=== PATIENT | male | born 1945 | race Caucasian/White ===

== ENCOUNTER 2018-10-26 06:49 | Day surgery (SDC) | payer OTHER, MEDICARE ==
--- OUTSIDE RECORDS SUMMARY | 2018-10-26 06:51 | XMS REPORT | Continuity of Care Document ---
:1945 Author Organization Interface Problems Problem Status Onset Classification Date Comments Source Date Reported History of Active Problem 08/03/2017 Medical colon polyps Group High Active Problem 08/03/2017 Medical cholesterol Group HTN (<span Active Problem 08/03/2017 Medical ID="[id number] Group 1">Confirmed</s govea>) Medications Medication Details Route Status Patient Ordering Order Source Instructions Provider Date Fish Oil PO, 0 Active Refill(s) 017 Medical Group memantine 5 mg oral mucinex, Active MH tablet PO, BID, 0 017 Medical Refill(s) Group Sulfamethoxazole 0 Active Refill(s) 017 Medical Group multivitamin Daily, 0 Active Refill(s) 017 Medical Group Aspirin 0 Active Refill(s) 017 Medical Group atorvastatin 10 mg 10 mg=1 Active MH oral tablet tab, PO, 017 Medical Bedtime, # Group 30 tab, 0 Refill(s) lisinopril 10 mg 10 mg=1 Active MH oral tablet tab, PO, 017 Medical Daily, # Group 30 tab, 0 Refill(s) Mucinex 600 mg, Active MH PO, Q12H, 017 Medical 0 Group Refill(s) Metronidazole 500 500 mg=1 Active MH MG Oral Tablet tab, PO, 017 Medical BID, # 14 Group tab, 0 Refill(s) CoQ10 300 mg, Active MH PO, Daily, 017 Medical 0 Group Refill(s) Allergies, Adverse Reactions, Alerts Substance Category Reaction Severity Reaction Status Date Comments Source type Reported penicillin Assertion Drug Active allergy Medical Group Immunizations Immunization Date Given Site Status Last Updated Comments Source Results Order Results Value Reference Date Interpretation Comments Source Name Range Vital Signs Vital Sign Value Date Comments Source Weight 76.477 07/31/2017 Medical Group BMI Calculated 25.64 07/31/2017 Medical Group Systolic (mm Hg) 124 07/31/2017 Medical [facility] Diastolic (mm Hg) 72 07/31/2017 Medical [facility] Height 172.72 cm 07/31/2017 Medical [facility] Encounters Location Location Encounter Encounter Reason Attending ADM DC Status Source Details Type Number For Provider Date Date Visit Outpatient [id number] CYDNEY 07/31 [facility][Note 3] SCHAFER /2017 [facility] Outpatient [id number] Cydney 07/31 08/01 [facility] [place] Procedures Procedure Code Date Perfomer Comments Source Colonoscopy [id number] 08/11/2013 Medical Group Tonsillectomy [id number] Medical Group
--- OUTSIDE RECORDS SUMMARY | 2018-10-26 06:51 | XMS REPORT | Clinical Summary ---
:[address] [facility] Address [address] [place] [address] Care Team Providers Name Role Phone Manny Chaparro MD Primary Care Provider Allergies Active Allergy Reactions Severity Noted Date Comments Penicillins Rash Medium 08/04/2017 Medications Medication Sig Dispensed Refills Start Date End Date Status atorvastatin (LIPITOR) Take 10 mg by 0 Active 10 MG mouth nightly . tabletIndications: mixed hyperlipidemia lisinopril Take 10 mg by 0 Active (PRINIVIL,ZESTRIL) 10 mouth daily. MG tabletIndications: hypertension tamsulosin (FLOMAX) 0.4 Take 1 capsule 30 capsule 0 08/09/2017 Active mg Cp24 24 hr capsule (0.4 mg total) by mouth daily. memantine (NAMENDA) 5 Take 5 mg by 0 Active MG tablet mouth 2 (two) times daily. finasteride (PROSCAR) 5 Take 5 mg by 0 Active mg tablet mouth nightly . ciprofloxacin HCl Take 500 mg by 0 Active (CIPRO) 500 MG tablet mouth 2 (two) times daily. Active Problems Problem Noted Date BPH (benign prostatic hyperplasia) 09/15/2017 Hydronephrosis with infection 08/05/2017 Encounters Date Type Specialty Care Team Description 09/03/2018 Office Visit Urology Adama Argueta Prostate cancer (HCC) ( Primary Dx); MD Hernando Lower urinary tract symptoms (LUTS) 08/31/2018 Orders Only Urology Nabila Farrar 08/27/2018 Telephone Urology Nabila Farrar Pt not sure what procedure they need to com in and have. 05/18/2018 Telephone Urology Adama Argueta Advice Only MD Hernando after 10/25/2017 Family History Medical History Relation Name Comments Heart disease Father Stroke Mother Relation Name Status Comments Father Mother Social History Tobacco Use Types Packs/Day Years Used Date Never Smoker Smokeless Tobacco: Never Used Alcohol Use Drinks/Week oz/Week Comments Yes social drinker Sex Assigned at Date Recorded Not on file Job Start Date Occupation Industry Not on file Not on file Not on file Travel History Travel Start Travel End No recent travel history available. Last Filed Vital Signs Vital Sign Reading Time Taken Blood Pressure 121/68 09/03/2018 2:34 PM [employer] Pulse 95 09/03/2018 2:34 PM [employer] Temperature 36.7 C (98 F) 09/03/2018 2:34 PM [employer] Respiratory Rate - - Oxygen Saturation - - Inhaled Oxygen Concentration - - Weight 68.9 kg (151 lb 12.8 oz) 09/03/2018 2:34 PM [employer] Height 172.7 cm (5' 8") 09/03/2018 2:34 PM [employer] Body Mass Index 23.08 09/03/2018 2:34 PM [employer] Plan of Treatment Not on file Procedures Procedure Name Priority Date/Time Associated Diagnosis Comments PSA Routine 09/03/2018 4:04 PM Lower urinary tract Results for this [employer] symptoms (LUTS) procedure are in the results section. after 10/25/2017 Results PSA (09/03/2018 4:04 PM [employer]) Prostate Specific Ag, Serum 0.3 0.0 - 4.0 ng/mL [facility] 1 Comment: Candy ECLIA methodology. According to the [place] [employer], Serum PSA should decrease and remain at undetectable levels after radical prostatectomy. The AUA defines biochemical recurrence as an initial PSA value 0.2 ng/mL or greater followed by a subsequent confirmatory PSA value 0.2 ng/mL or greater. Values obtained with different assay methods or kits cannot be used interchangeably. Results cannot be interpreted as absolute evidence of the presence or absence of malignant disease. Specimen Blood Narrative Performed At Performed at: - [facility] [address], [id number] Rotoprinter: Gilbert Multani MD, Phone:[phone] Performing Organization Address City/State/Zipcode Phone Number [facility] 1 after 10/25/2017 Insurance Payer Benefit Plan / Group Subscriber ID Type Phone Address MEDICARE MEDICARE A B xxxxxxxxxxx Medicare MCR SUPPLEMENT/INDIVIDUAL AARP/[facility] xxxxxxxxxxx [facility] Advance Directives For more information, please contact:[address] [phone] Code Status Date Activated Date Inactivated Comments Full Code 09/15/2017 3:31 PM 09/16/2017 3:43 PM This code status was determined by: Patient Full Code 08/05/2017 12:16 AM 08/09/2017 4:39 PM This code status was determined by: Patient
--- OUTSIDE RECORDS SUMMARY | 2018-10-26 06:52 | XMS REPORT | Summary of Care ---
:1945 Author Organization [facility] [place] Address [address] [place] [address]- Encounter HQ Darnell(FIN) [id number] Date(s): 07/31/17 - 07/31/17 [facility] Gastroenterology [address] [place] [address]- [phone] Discharge Disposition: Home or Self Care Attending Physician: Stanley Soto MD Vital Signs Most recent to oldest [Reference Range]: 1 Height 172.72 cm (07/31/17 2:15 PM) Blood Pressure [90-140/60-90 mmHg] 124/72 mmHg (07/31/17 2:15 PM) Weight 76.477 kg (07/31/17 2:15 PM) Body Mass Index 25.64 m2 (07/31/17 2:15 PM) Problem List Condition Effective Dates Status Health Status Informant History of colon polyps(Confirmed) Active High cholesterol(Confirmed) Active HTN (hypertension)(Confirmed) Active Allergies, Adverse Reactions, Alerts Substance Reaction Severity Status penicillin Active Medications aspirin 0 Refill(s) Start Date: 07/31/17 Status: Orderedatorvastatin 10 mg oral tablet 10 mg=1 tab, PO, Bedtime, # 30 tab, 0 Refill(s) Start Date: 07/31/17 Status: YvdyzuwMwT21 300 mg, PO, Daily, 0 Refill(s) Start Date: 07/31/17 Status: OrderedFish Oil PO, 0 Refill(s) Start Date: 07/31/17 Status: Orderedlisinopril 10 mg oral tablet 10 mg=1 tab, PO, Daily, # 30 tab, 0 Refill(s) Start Date: 07/31/17 Status: Orderedmemantine 5 mg oral tablet mucinex, PO, BID, 0 Refill(s) Start Date: 07/31/17 Status: OrderedmetroNIDAZOLE 500 mg oral tablet 500 mg=1 tab, PO, BID, # 14 tab, 0 Refill(s) Start Date: 07/31/17 Stop Date: 08/07/17 Status: OrderedMucinex 600 mg, PO, Q12H, 0 Refill(s) Start Date: 07/31/17 Status: Orderedmultivitamin Daily, 0 Refill(s) Start Date: 07/31/17 Status: Orderedsulfamethoxazole 0 Refill(s) Start Date: 07/31/17 Status: Ordered Results No data available for this section Immunizations No data available for this section Procedures Procedure Date Related Diagnosis Body Site Colonoscopy 2014 Tonsillectomy Social History Social History Type Response Substance Abuse Use: None. Alcohol Never Smoking Status Never smoker; Exposure to Tobacco Smoke None; Cigarette Smoking Last 365 Days No; Reg Smoking Cessation Counseling No Assessment and Plan No data available for this section
--- OUTSIDE RECORDS SUMMARY | 2018-10-26 06:52 | XMS REPORT ---
:1945 Author Organization [facility] Address [address] [place] [address] Dr. [place] [address] [place] [address] Care Team Providers Name Role Phone ADAMA ARGUETA Unavailable Unavailable MIROSLAVA THOMSON Unavailable Unavailable Problems This patient has no known problems. Allergies, Adverse Reactions, Alerts This patient has no known allergies or adverse reactions. Medications This patient has no known medications. Results Test Description Test Time Test Comments Text Results Atomic Results Result Comments TISSUE EXAM 2017-09-16 13:12:00 Surgical Pathology Report Case: [id number] Authorizing Provider: Adama Argueta, Collected: 09/15/2017 Alyx HARPER Ordering Location: [facility] Received: 09/15/2017 1222 SERVICES Pathologist: Kathie May MD Specimen: Prostate, TURP PROSTATE, TRANSURETHRAL RESECTION OF PROSTATE: - PROSTATIC ADENOCARCINOMA, UZAIR SCORE 6 (3+3) - MULTIPLE CHIPS INVOLVED (APPROXIMATELY 85 OUT OF 197 CHIPS, 20% SURFACE AREA) - NODULAR HYPERPLASIAMG/pl These findings were discussed with Dr. Argueta on 09/16/2017.86250Gsdoiz prostate hyperplasiaprostateThe specimen is received in fixative and designated as "prostate" and consists of multiple pink-patiño tissue fragments measuring 5.0 x 3.0 x 2.5 cm in aggregate and weighs 5.6 gm. The specimen is entirely submitted into A1 to A6. MG/pl Performed [facility], Department of Pathology, [facility] [place] [address], [facility], Department of Pathology, [address] [place] [address], [facility], [address] [place] [address], BASIC METABOLIC PANEL 2017-09-16 06:44:00 Test Item Value Reference Range Comments SODIUM (BEAKER) (test 141 meq/L 135-148 jmwp=357) POTASSIUM (BEAKER) (test 4.1 meq/L 3.6-5.5 nliv=361) CHLORIDE (BEAKER) (test 107 meq/L 98-106 gler=040) CO2 (BEAKER) (test ofrc=567) 24 meq/L 20-29 BLOOD UREA NITROGEN (BEAKER) 11 mg/dL 10-26 (test gdbh=962) CREATININE (BEAKER) (test 0.90 mg/dL 0.50-1.20 nopg=434) GLUCOSE RANDOM (BEAKER) 118 mg/dL 70-110 (test jqnw=129) CALCIUM (BEAKER) (test 9.0 mg/dL 8.5-10.5 vnju=000) EGFR (BEAKER) (test 83 mL/min/1.73 sq m ESTIMATED GFR IS NOT jfas=4708) ACCURATE CREATININE CLEARANCE IN PREDICTING GLOMERULAR FILTRATION RATE. ESTIMATED GFR IS NOT APPLICABLE FOR DIALYSIS PATIENTS. HEMOGLOBIN AND [id number] 06:26:00 Test Item Value Reference Range Comments HEMOGLOBIN (BEAKER) (test ktqv=267) 12.3 GM/DL 13.0-16.8 HEMATOCRIT (BEAKER) (test jgik=180) 36.8 % 40.0-50.0 HEMOGLOBIN AND [id number] 13:13:00 Test Item Value Reference Range Comments HEMOGLOBIN (BEAKER) (test ujxa=749) 12.7 GM/DL 13.0-16.8 HEMATOCRIT (BEAKER) (test uqnc=714) 38.0 % 40.0-50.0 URINE [id number] 08:08:00 Test Item Value Reference Range Comments CULTURE (BEAKER) (test yyoo=7479) No growth BASIC METABOLIC [id number] 14:35:00 Test Item Value Reference Range Comments SODIUM (BEAKER) (test 137 meq/L 135-148 orsk=613) POTASSIUM (BEAKER) (test 4.8 meq/L 3.6-5.5 hjsn=183) CHLORIDE (BEAKER) (test 104 meq/L 98-106 oipa=754) CO2 (BEAKER) (test 23 meq/L 20-29 fire=345) BLOOD UREA NITROGEN 23 mg/dL 10-26 (BEAKER) (test kcjr=234) CREATININE (BEAKER) (test 1.50 mg/dL 0.50-1.20 xweu=872) GLUCOSE RANDOM (BEAKER) 99 mg/dL 70-110 (test lzpn=093) CALCIUM (BEAKER) (test 9.1 mg/dL 8.5-10.5 xgjk=125) EGFR (BEAKER) (test 46 mL/min/1.73 sq m ESTIMATED GFR IS NOT wkqc=7771) ACCURATE CREATININE CLEARANCE IN PREDICTING GLOMERULAR FILTRATION RATE. ESTIMATED GFR IS NOT APPLICABLE FOR DIALYSIS PATIENTS. CBC W/PLT COUNT & AUTO [id number] 14:05:00 Test Item Value Reference Range Comments WHITE BLOOD CELL COUNT (BEAKER) (test oday=750) 9.7 K/ L 4.0-10.0 RED BLOOD CELL COUNT (BEAKER) (test coub=290) 4.69 M/ L 4.20-5.80 HEMOGLOBIN (BEAKER) (test wctx=776) 14.8 GM/DL 13.0-16.8 HEMATOCRIT (BEAKER) (test fjdd=117) 44.7 % 40.0-50.0 MEAN CORPUSCULAR VOLUME (BEAKER) (test hlxm=695) 95.4 fL 82.0-98.0 MEAN CORPUSCULAR HEMOGLOBIN (BEAKER) (test 31.5 pg 27.0-33.0 jget=251) MEAN CORPUSCULAR HEMOGLOBIN CONC (BEAKER) (test 33.0 GM/DL 32.0-36.0 ntqw=160) RED CELL DISTRIBUTION WIDTH (BEAKER) (test 12.9 % 10.3-14.2 twgd=778) PLATELET COUNT (BEAKER) (test fokz=975) 505 K/CU MM 150-430 MEAN PLATELET VOLUME (BEAKER) (test gfuy=805) 5.9 fL 6.5-10.5 NUCLEATED RED BLOOD CELLS (BEAKER) (test 0 /100 WBC 0-0 zjyw=274) NEUTROPHILS RELATIVE PERCENT (BEAKER) (test 76 % enhn=805) LYMPHOCYTES RELATIVE PERCENT (BEAKER) (test 15 % exnu=017) MONOCYTES RELATIVE PERCENT (BEAKER) (test 5 % fqqb=102) EOSINOPHILS RELATIVE PERCENT (BEAKER) (test 4 % fjnu=988) BASOPHILS RELATIVE PERCENT (BEAKER) (test 0 % qzfz=566) NEUTROPHILS ABSOLUTE COUNT (BEAKER) (test 7.30 K/ L 1.80-8.00 vzvr=619) LYMPHOCYTES ABSOLUTE COUNT (BEAKER) (test 1.40 K/ L 1.48-4.50 xnaf=109) MONOCYTES ABSOLUTE COUNT (BEAKER) (test 0.50 K/ L 0.00-1.30 lvyw=210) EOSINOPHILS ABSOLUTE COUNT (BEAKER) (test 0.40 K/ L 0.00-0.50 btcn=945) BASOPHILS ABSOLUTE COUNT (BEAKER) (test 0.00 K/ L 0.00-0.20 fcjc=847) BASIC METABOLIC [id number] 06:17:00 Test Item Value Reference Range Comments SODIUM (BEAKER) (test 140 meq/L 135-148 jhwe=331) POTASSIUM (BEAKER) (test 4.6 meq/L 3.6-5.5 yxmz=921) CHLORIDE (BEAKER) (test 106 meq/L 98-106 roab=241) CO2 (BEAKER) (test 24 meq/L 20-29 xboe=276) BLOOD UREA NITROGEN 30 mg/dL 10-26 (BEAKER) (test fwtj=828) CREATININE (BEAKER) (test 2.00 mg/dL 0.50-1.20 eolz=154) GLUCOSE RANDOM (BEAKER) 91 mg/dL 70-110 (test olxz=567) CALCIUM (BEAKER) (test 8.8 mg/dL 8.5-10.5 snww=228) EGFR (BEAKER) (test 33 mL/min/1.73 sq m ESTIMATED GFR IS NOT ofys=7077) ACCURATE CREATININE CLEARANCE IN PREDICTING GLOMERULAR FILTRATION RATE. ESTIMATED GFR IS NOT APPLICABLE FOR DIALYSIS PATIENTS. [id number] 06:16:00 Test Item Value Reference Range Comments PHOSPHORUS (BEAKER) (test dxjy=806) 3.1 mg/dL 2.5-4.5 [id number] 06:11:00 Test Item Value Reference Range Comments MAGNESIUM (BEAKER) (test jbqg=708) 1.9 mg/dL 1.5-3.0 [id number] 06:11:00 Test Item Value Reference Range Comments PROTIME (BEAKER) (test idqb=309) 11.7 seconds 9.3-12.0 INR (BEAKER) (test dsro=039) 1.1 <=5.9 PARTIAL THROMBOPLASTIN TIME (BEAKER) (test 30.8 seconds 23.0-35.0 sugb=565) RECOMMENDED COUMADIN/WARFARIN INR THERAPY RANGESSTANDARD DOSE: 2.0 - 3.0 Includes: PROPHYLAXIS forvenous thrombosis, systemic embolization; TREATMENT for venous thrombosis and/or pulmonary embolus.HIGH RISK: Target INR is 2.5-3.5 for patients with mechanical heart valves.URINALYSIS W/ [id number] 15 :28:00 Test Item Value Reference Range Comments COLOR (BEAKER) (test abzn=680) Yellow CLARITY (BEAKER) (test vzdn=718) Clear SPECIFIC GRAVITY UA (BEAKER) (test pwxi=289) 1.010 1.001-1.035 PH UA (BEAKER) (test mntz=044) 6.0 5.0-8.0 PROTEIN UA (BEAKER) (test rfrv=384) Negative Negative GLUCOSE UA (BEAKER) (test lvyk=393) Negative Negative KETONES UA (BEAKER) (test sppv=464) Negative Negative BILIRUBIN UA (BEAKER) (test yqhu=454) Negative Negative BLOOD UA (BEAKER) (test ggsm=009) Small Negative NITRITE UA (BEAKER) (test uwee=935) Negative Negative LEUKOCYTE ESTERASE UA (BEAKER) (test hgto=162) Negative Negative UROBILINOGEN UA (BEAKER) (test geuk=519) 0.2 mg/dL 0.2-1.0 BACTERIA (BEAKER) (test mdxz=650) None Seen RBC UA-MANUAL (BEAKER) (test ulbf=8418) <5 /HPF WBC UA-MANUAL (BEAKER) (test hbqk=7103) <5 /HPF SQUAMOUS EPITHELIAL MANUAL (BEAKER) (test <5 /HPF ibkf=0292) SOURCE(BEAKER) (test jkqt=5341) U/S, RENAL, [id number] 13:16:00Reason for exam:->hydronephrosisFINAL REPORT History: Hydronephrosis. FINDINGS: No comparisons are available.Real-time sonographic examination reveals normal size kidneys measuring up to 12.0 x 5.8 x 6.0 and 11.5 x 5.0 x 6.5 cm in greatest dimensions , on the right and left, respectively. Mild to moderate bilateral hydronephrosis is present. Renal echogenicity appears diffusely increased, suggestive of chronic medical renal disease. There are no sonographically detectable masses, cysts or stones. Renal cortical thickness measures 16 mm bilaterally. The urinary bladder is markedly distended with an estimatedpost void volume of 594 cc. IMPRESSION: 1. Markedly distended urinary bladder with a significant post void residual volume as described above. 2. Mild/moderate bilateral hydronephrosis which could be related to the bladder issues described above. 3. Diffusely echogenic kidneys, suggestive of chronic medical renal disease. Signed: Joshua Dobbsort Verified Date/Time: 08/06/2017 13:16: 29 ReadingLocation: [facility] Radiology Reading Room [id number] 07:26:00 Test Item Value Reference Range Comments PROTIME (BEAKER) (test idhd=065) 11.7 seconds 9.3-12.0 INR (BEAKER) (test ekxy=986) 1.1 <=5.9 PARTIAL THROMBOPLASTIN TIME (BEAKER) (test 31.6 seconds 23.0-35.0 txgg=804) RECOMMENDED COUMADIN/WARFARIN INR THERAPY RANGESSTANDARD DOSE: 2.0 - 3.0 Includes: PROPHYLAXIS forvenous thrombosis, systemic embolization; TREATMENT for venous thrombosis and/or pulmonary embolus.HIGH RISK: Target INR is 2.5-3.5 for patients with mechanical heart valves.PROTHROMBIN [id number] 07:26: 00 Test Item Value Reference Range Comments PROTIME (BEAKER) (test vmuk=755) 11.7 seconds 9.3-12.0 INR (BEAKER) (test zbsp=945) 1.1 <=5.9 RECOMMENDED COUMADIN/WARFARIN INR THERAPY RANGESSTANDARD DOSE: 2.0 - 3.0 Includes: PROPHYLAXIS forvenous thrombosis, systemic embolization; TREATMENT for venous thrombosis and/or pulmonary embolus.HIGH RISK: Target INR is 2.5-3.5 for patients with mechanical heart valves.BASIC METABOLIC [id number] 06:40: 00 Test Item Value Reference Range Comments SODIUM (BEAKER) (test 139 meq/L 135-148 khob=139) POTASSIUM (BEAKER) (test 5.3 meq/L 3.6-5.5 lzep=345) CHLORIDE (BEAKER) (test 106 meq/L 98-106 mrtw=583) CO2 (BEAKER) (test 25 meq/L 20-29 puav=033) BLOOD UREA NITROGEN 46 mg/dL - (BEAKER) (test jkas=133) CREATININE (BEAKER) (test 2.90 mg/dL 0.50-1.20 irep=017) GLUCOSE RANDOM (BEAKER) 91 mg/dL 70-110 (test qbnj=336) CALCIUM (BEAKER) (test 9.0 mg/dL 8.5-10.5 bgdl=706) EGFR (BEAKER) (test 21 mL/min/1.73 sq m ESTIMATED GFR IS NOT bosj=1145) ACCURATE CREATININE CLEARANCE IN PREDICTING GLOMERULAR FILTRATION RATE. ESTIMATED GFR IS NOT APPLICABLE FOR DIALYSIS PATIENTS. [id number] 06:34:00 Test Item Value Reference Range Comments PHOSPHORUS (BEAKER) (test eqet=792) 3.4 mg/dL 2.5-4.5 [id number] 06:29:00 Test Item Value Reference Range Comments MAGNESIUM (BEAKER) (test jlkv=839) 2.6 mg/dL 1.5-3.0 BASIC METABOLIC [id number] 08:28:00 Test Item Value Reference Range Comments SODIUM (BEAKER) (test 133 meq/L 135-148 tqhd=160) POTASSIUM (BEAKER) (test 5.6 meq/L 3.6-5.5 koxd=012) CHLORIDE (BEAKER) (test 102 meq/L 98-106 yhug=978) CO2 (BEAKER) (test 21 meq/L 20-29 muxg=479) BLOOD UREA NITROGEN 70 mg/dL - (BEAKER) (test aqgh=106) CREATININE (BEAKER) (test 4.90 mg/dL 0.50-1.20 lexg=869) GLUCOSE RANDOM (BEAKER) 75 mg/dL 70-110 (test yblv=993) CALCIUM (BEAKER) (test 8.7 mg/dL 8.5-10.5 xppc=832) EGFR (BEAKER) (test 12 mL/min/1.73 sq m ESTIMATED GFR IS NOT vrne=1949) ACCURATE CREATININE CLEARANCE IN PREDICTING GLOMERULAR FILTRATION RATE. ESTIMATED GFR IS NOT APPLICABLE FOR DIALYSIS PATIENTS. [id number] 08:27:00 Test Item Value Reference Range Comments PHOSPHORUS (BEAKER) (test agri=817) 4.5 mg/dL 2.5-4.5 [id number] 08:26:00 Test Item Value Reference Range Comments PROTIME (BEAKER) (test swbb=507) 11.7 seconds 9.3-12.0 INR (BEAKER) (test dztm=102) 1.1 <=5.9 PARTIAL THROMBOPLASTIN TIME (BEAKER) (test 32.4 seconds 23.0-35.0 pmzp=656) RECOMMENDED COUMADIN/WARFARIN INR THERAPY RANGESSTANDARD DOSE: 2.0 - 3.0 Includes: PROPHYLAXIS forvenous thrombosis, systemic embolization; TREATMENT for venous thrombosis and/or pulmonary embolus.HIGH RISK: Target INR is 2.5-3.5 for patients with mechanical heart valves.LACTIC ACID, VENOUS, WHOLE [id number] 08:24:00 Test Item Value Reference Range Comments LACTATE BLOOD VENOUS (2) (BEAKER) (test 0.6 mmol/L 0.5-2.2 frso=2552) Effective 12/13/2015: Units/Reference Range ChangeNew: 0.5-2.2 mmol/L Previous: 5 -18 mg/[id number] 08:22:00 Test Item Value Reference Range Comments MAGNESIUM (BEAKER) (test oyva=762) 2.9 mg/dL 1.5-3.0 CBC W/PLT COUNT & AUTO [id number] 08:15:00 Test Item Value Reference Range Comments WHITE BLOOD CELL COUNT (BEAKER) (test suyv=103) 11.1 K/ L 4.0-10.0 RED BLOOD CELL COUNT (BEAKER) (test khpe=321) 4.21 M/ L 4.20-5.80 HEMOGLOBIN (BEAKER) (test sqkc=342) 13.3 GM/DL 13.0-16.8 HEMATOCRIT (BEAKER) (test luxn=835) 40.3 % 40.0-50.0 MEAN CORPUSCULAR VOLUME (BEAKER) (test pjse=878) 95.7 fL 82.0-98.0 MEAN CORPUSCULAR HEMOGLOBIN (BEAKER) (test 31.5 pg 27.0-33.0 ojya=447) MEAN CORPUSCULAR HEMOGLOBIN CONC (BEAKER) (test 33.0 GM/DL 32.0-36.0 nleb=841) RED CELL DISTRIBUTION WIDTH (BEAKER) (test 13.0 % 10.3-14.2 txvm=764) PLATELET COUNT (BEAKER) (test wlco=047) 414 K/CU MM 150-430 MEAN PLATELET VOLUME (BEAKER) (test luui=968) 6.2 fL 6.5-10.5 NUCLEATED RED BLOOD CELLS (BEAKER) (test 0 /100 WBC 0-0 dpff=774) NEUTROPHILS RELATIVE PERCENT (BEAKER) (test 83 % nfql=677) LYMPHOCYTES RELATIVE PERCENT (BEAKER) (test 10 % kaef=698) MONOCYTES RELATIVE PERCENT (BEAKER) (test 5 % amec=375) EOSINOPHILS RELATIVE PERCENT (BEAKER) (test 1 % lsod=082) BASOPHILS RELATIVE PERCENT (BEAKER) (test 1 % knve=378) NEUTROPHILS ABSOLUTE COUNT (BEAKER) (test 9.30 K/ L 1.80-8.00 eaez=382) LYMPHOCYTES ABSOLUTE COUNT (BEAKER) (test 1.10 K/ L 1.48-4.50 tpom=397) MONOCYTES ABSOLUTE COUNT (BEAKER) (test 0.60 K/ L 0.00-1.30 vrgb=148) EOSINOPHILS ABSOLUTE COUNT (BEAKER) (test 0.10 K/ L 0.00-0.50 jpud=239) BASOPHILS ABSOLUTE COUNT (BEAKER) (test 0.10 K/ L 0.00-0.20 pcsv=004)
[2018-10-26] MEDS ORDERED: NA CHLORIDE 0.9% 500 ML ONE (07:27)
[2018-10-26] MEDS ORDERED: TETRACAINE HCL 0.5% 2ML OPTH ONE (07:28)
[2018-10-26] MEDS ORDERED: BUPIVACAINE 0.25% PF 10 ML VIAL ONE (07:28)
[2018-10-26] MEDS: PHENYLEPHRINE 10% OPTH 5ML ONE ×3 (07:45→07:59)
[2018-10-26] MEDS: CYCLOPENTOLATE 1% OPTH 2 ML ONE ×3 (07:45→07:59)
[2018-10-26] MEDS ORDERED: NS 0.9% VIAL 10 ML ONE (08:20)
[2018-10-26] MEDS ORDERED: EPINEPHRINE/PF 1 MG/ML AMP ONE ×2 (08:21→08:42)
[2018-10-26] MEDS ORDERED: BALANCED SALT IRRIG PLAIN 500 ML BTL IRR ONE (08:22)
[2018-10-26] MEDS ORDERED: DUOVISC 1 KIT OPTH ONE (08:22)
[2018-10-26] MEDS: LIDOCAINE 2% MPF 5 ML VIAL ONE ×2 (08:24→08:50)
[2018-10-26] MEDS ORDERED: PROPOFOL 200 MG/20 ML VIAL IV ONE (08:29)
[2018-10-26] MEDS ORDERED: LIDOCAINE 2% MPF 5 ML VIAL ONE (08:29)
[2018-10-26] MEDS: MOXIFLOXACIN HCL 10 DROPS/ML **OR USE OPTH ONE ×2 (08:46→09:02)
--- NOTE | 2018-10-26 09:11 | P.BOP ---
Preoperative diagnosis: Nuclear sclerotic cataract and regular astigmatism OD Postoperative diagnosis: Same Primary procedure: Phacoemulsification with Toric IOL OD Estimated blood loss: None Anesthesia: Local (Subtenon's infusion with anesthesia for cataract surgery) Complications: None Implants: [id number] +21.0 @ 177 Transferred to: Other (Day surgery) Condition: Good
--- NOTE | 2018-10-26 20:27 | OP ---
Date of Procedure: 10/26/2018 Surgeon: Katrina Parham MD Anesthesiologist: Patria Austin CRNA and Osman Freitas M.D. Preoperative Diagnosis: Nuclear sclerotic cataract, and regular astigmatism, OD (right eye). Operation Performed: Phacoemulsification with intraocular lens implant, right eye. Anesthesia: Per cataract surgery. Complications: None. Description Of Procedure: In day surgery, the patient was prepped with Betadine and draped. A conjunctival incision was made in the inferior nasal quadrant with Asher scissors. A sub-Tenon block consisting of a 1:1 mixture of 2% Xylocaine and 0.25% bupivacaine was placed through the conjunctival incision with a blunt cannula. A Honan balloon was placed over the eye and the patient was transferred to the operating room. In the operating room the patient was prepped and draped in the usual sterile fashion for ophthalmic surgery. A lid speculum was placed in the right eye. Two paracentesis sites were made superiorly and inferiorly in the limbal cornea. Viscoat was placed in the anterior chamber and a crescent blade was used to make a corneal groove and tunnel, and a keratome was used to enter the anterior chamber. Provisc was placed in the anterior chamber and a 360 degree capsulotomy was performed with a cystitome. The lens was hydrodissected with BSS and rotated freely. The lens was removed with a stop and chop technique. 5.99 phaco CDE was used to remove the lens. Residual cortex was removed with the irrigation and aspiration. Provisc was placed in the capsular bag. A SA6AT5 +21.0 at 177 degree lens was placed in the capsular bag without complications. Irrigation and aspiration was used to remove residual viscoelastic. The paracentesis sites were hydrated with BSS. The wound and paracentesis sites were inspected and found to be watertight. Vigamox 0.07 cc was placed intracamerally at the end of the procedure. The eye was irrigated with balanced salt solution. The eye was patched with a soft cotton patch and Rodríguez metal shield. The patient was returned to day surgery in good condition. Comments: 1:5000 epinephrine was placed in the anterior chamber prior to Viscoat and prior to I&A. Discharge Instructions: Mr. Calle is discharged to home in good condition and is to follow up with Dr. Parham in the morning. JHL/MODL Voice ID: [id number] Report ID: [id number]
== END 2018-10-26 09:42 | disposition home or self-care (01) ==
LOC: OR 06:49
PROVIDERS: ATTEND Ophthalmology Retina Specialist
PROC: 08RJ3JZ Replacement of Right Lens with Synthetic Substitute, Percutaneous Approach (ICD-10-PCS; principal; 2018-10-26 09:10)
DX: H25.11 Age-related nuclear cataract, right eye (principal); H52.221 Regular astigmatism, right eye; I10 Essential (primary) hypertension; E78.00 Pure hypercholesterolemia, unspecified; G30.9 Alzheimer's disease, unspecified; F02.80 Dementia in other diseases classified elsewhere, unspecified severity, without behavioral disturbance, psychotic disturbance, mood disturbance, and anxiety; Z79.82 Long term (current) use of aspirin; Z88.0 Allergy status to penicillin; Z85.46 Personal history of malignant neoplasm of prostate
CPT/HCPCS: 66984; J2704; J0171 ×2